=== PATIENT | male | born 1990 | race Caucasian/White ===

== ENCOUNTER 2017-07-24 14:50 | Emergency (ER) | payer OTHER ==
[2017-07-24 15:13] VITALS: BP 120/75
--- NOTE | 2017-07-24 16:22 | RAD ---
INDICATION: Left ankle injury. TECHNIQUE: 3 views of the left ankle were obtained. FINDINGS: Soft tissue swelling is noted along the anterolateral aspect of the ankle. There is a tiny 2 mm linear bony density adjacent to the tip of the lateral malleolus suggestive of a small avulsion fracture fragment. In addition there is a faint radiolucent line extending through the distal tip of the medial malleolus. IMPRESSION: 1. SOFT TISSUE SWELLING AND PROBABLE SMALL AVULSION FRACTURE FRAGMENT ARISING FROM THE TIP OF THE LATERAL MALLEOLUS. 2. POSSIBLE NONDISPLACED FRACTURE OF THE TIP OF THE MEDIAL MALLEOLUS.
[2017-07-24] MEDS ORDERED: Ibuprofen TAB* 600 MG PO ONE (16:49)
--- NOTE | 2017-07-24 16:52 | UC ---
Lower Extremity/Ankle HPI - HPI Summary HPI Summary: states he was playing basketball this afternoon and he stepped on another player 's foot with his left foot, rolling over his ankle on the lateral side. Inmediately had pain and swelling and cannot bear weight. - History of Current Complaint Chief Complaint: UCLowerExtremity Stated Complaint: SORE ANKLE Time Seen by Provider: 07/24/17 15:46 Hx Obtained From: Patient Onset/Duration: Sudden Onset Severity Initially: Moderate Severity Currently: Moderate Pain Scale Used: 0-10 Numeric - 4 Aggravating Factor(s): Standing Alleviating Factor(s): Rest, Elevation, Ice - Risk Factors Gout Risk Factors: Negative DVT Risk Factors: Negative Septic Arthritis Risk Factor: Negative - Allergies/Home Medications Allergies/Adverse Reactions: Allergies Allergy/AdvReac Type Severity Reaction Status Date / Time No Known Allergies Allergy Verified 07/24/17 15:13 Home Medications: Home Medications NK [No Home Medications Reported] 07/24/17 [History Confirmed 07/24/17] PMH/Surg Hx/FS Hx/Imm Hx Previously Healthy: Yes - Surgical History Surgical History: Yes Surgery Procedure, Year, and Place: hernia repair - Social History Alcohol Use: Weekly Substance Use Type: None Smoking Status (MU): Never Smoked Tobacco Review of Systems Constitutional: Negative Neurovascular: Negative Musculoskeletal: Arthralgia, Edema Is Patient Immunocompromised?: No All Other Systems Reviewed And Are Negative: Yes Physical Exam Triage Information Reviewed: Yes Appearance: Well-Appearing Vital Signs: Initial Vital Signs Temp 98.5 F 07/24/17 15:06 Pulse 71 07/24/17 15:06 Resp 16 07/24/17 15:06 BP 120/75 07/24/17 15:06 Pulse Ox 100 07/24/17 15:06 Vital Signs Reviewed: Yes Musculoskeletal: Positive: Strength Limited @, Edema @ - lateral malleolus left ankle, Other: - pedal pulses positive, capillary refill less 2 sec Lower Extremity Course/Dx - Course Course Of Treatment: take pain medication as prescribed. Elevate left leg, gel ankle splint applied, use crutches when needed. Follow up with ortho clinic next week - Differential Dx/Diagnosis Provider Diagnoses: ankle fracture Discharge - Discharge Plan Condition: Stable Disposition: HOME Patient Education Materials: Ankle Fracture (ED) Referrals: Nate Scott MD [Primary Care Provider] - Lisette Avila MD [Medical Doctor] -
== END 2017-07-24 17:00 | disposition home or self-care (01) ==
LOC: UCEAST 14:50
DX: S82.62XA Displaced fracture of lateral malleolus of left fibula, initial encounter for closed fracture (principal); W50.0XXA Accidental hit or strike by another person, initial encounter; Y93.67 Activity, basketball; Y92.9 Unspecified place or not applicable
CPT/HCPCS: 99203; A9270-GY; G0463